=== PATIENT | male | born 1960 | race Caucasian/White ===

== ENCOUNTER 2017-05-24 16:35 | Emergency (ER) | payer BC ==
[2017-05-24 16:45] VITALS: BP 150/87
--- NOTE | 2017-05-24 17:25 | UC ---
Skin Complaint HPI - HPI Summary HPI Summary: 56 yo male with pain /swelling occiput has sebaceous cyst there got infected and resolved with keflex last yr no f/c no n/v - History of Current Complaint Chief Complaint: UCSkin Time Seen by Provider: 05/24/17 17:10 Stated Complaint: SKIN COMPLAINT Hx Obtained From: Patient Onset/Duration: Gradual Onset, Lasting Days Timing: Constant Onset Severity: Mild Current Severity: Moderate Pain Intensity: 4 Pain Scale Used: 0-10 Numeric Character: Swelling, Redness, Raised, Painful Aggravating Factor(s): Touch Alleviating Factor(s): Heat Associated Signs & Symptoms: Positive: Tenderness - Allergy/Home Medications Allergies/Adverse Reactions: Allergies Allergy/AdvReac Type Severity Reaction Status Date / Time Statins Allergy Severe muscle pain Verified 05/24/17 16:45 Review of Systems Constitutional: Negative Skin: Negative Eyes: Negative ENT: Negative Respiratory: Negative Cardiovascular: Negative Gastrointestinal: Negative Genitourinary: Negative Motor: Negative Neurovascular: Negative Musculoskeletal: Negative Neurological: Negative Psychological: Negative Is Patient Immunocompromised?: No All Other Systems Reviewed And Are Negative: Yes PMH/Surg Hx/FS Hx/Imm Hx Previously Healthy: Yes Endocrine History: Diabetes Cardiovascular History: Hypertension - Surgical History Surgical History: Yes Surgery Procedure, Year, and Place: Appendectomy, Left carpal tunnel surgery, angioplasty 2002 with no stenting - Family History Known Family History: Positive: Cardiac Disease, Hypertension, Diabetes - Social History Alcohol Use: None Substance Use Type: None Smoking Status (MU): Never Smoked Tobacco Have You Smoked in the Last Year: No Physical Exam Triage Information Reviewed: Yes Appearance: Well-Appearing, No Pain Distress, Well-Nourished Vital Signs: Initial Vital Signs Temp 97.7 F 05/24/17 16:40 Pulse 74 05/24/17 16:40 Resp 20 05/24/17 16:40 BP 150/87 05/24/17 16:40 Pulse Ox 98 05/24/17 16:40 Vital Signs Reviewed: Yes Eyes: Positive: Conjunctiva Clear ENT: Positive: Hearing grossly normal. Negative: Nasal congestion, Nasal drainage, Muffled voice, Hoarse voice Neck: Positive: Supple, Nontender Respiratory: Positive: Lungs clear, Normal breath sounds, No respiratory distress Cardiovascular: Positive: RRR, No Murmur, Pulses Normal Musculoskeletal: Positive: ROM Intact, No Edema Neurological: Positive: Alert Psychological Exam: Normal Skin Exam: Other - see image Course/Dx - Diagnoses Provider Diagnoses: cellulitis occiput. sebaceous cyst Discharge - Discharge Plan Condition: Stable Disposition: HOME Prescriptions: Cephalexin CAP* [Keflex CAP*] 500 mg PO QID #28 cap Patient Education Materials: Cellulitis (ED) Referrals: Cindy Chauhan MD [Primary Care Provider] - 4 Days Additional Instructions: suspect sebaceous cyst recheck for new or worsening symptoms Images Head: 1 - sebaceous cyst with overlying erthyema
== END 2017-05-24 17:30 | disposition home or self-care (01) ==
LOC: UCEAST 16:35
DX: L03.811 Cellulitis of head [any part, except face] (principal); L72.3 Sebaceous cyst; E11.9 Type 2 diabetes mellitus without complications; I10 Essential (primary) hypertension; Z88.8 Allergy status to other drugs, medicaments and biological substances
CPT/HCPCS: 99212; G0463

== ENCOUNTER 2017-07-01 11:47 | Emergency (ER) | payer BC ==
[2017-07-01 13:19] VITALS: BP 140/83
--- NOTE | 2017-07-01 13:31 | UC ---
Throat Pain/Nasal [place] HPI - HPI Summary HPI Summary: top frontal headache thick yellow nasal drainage with vertigo feeling whne he get stuffed up for 2 weeks has been treating with flonase and otc medications - History of Current Complaint Chief Complaint: UCGeneralIllness Stated Complaint: sinus complaint Time Seen by Provider: 07/01/17 13:21 Hx Obtained From: Patient Onset/Duration: Gradual Onset, Lasting Weeks - 2, Still Present Severity: Moderate Pain Intensity: 6 Pain Scale Used: 0-10 Numeric Cough: None Associated Signs & Symptoms: Positive: Sinus Discomfort, Nasal Discharge, Other - left ear congestion - Allergies/Home Medications Allergies/Adverse Reactions: Allergies Allergy/AdvReac Type Severity Reaction Status Date / Time Statins Allergy Severe muscle pain Verified 07/01/17 13:08 PMH/Surg Hx/FS Hx/Imm Hx Previously Healthy: No Endocrine History: Diabetes Cardiovascular History: Hypertension - Surgical History Surgical History: Yes Surgery Procedure, Year, and Place: Appendectomy, Left carpal tunnel surgery, angioplasty 2002 with no stenting - Family History Known Family History: Positive: Cardiac Disease, Hypertension, Diabetes - Social History Occupation: Employed Full-time Lives: With Family Alcohol Use: Rare Substance Use Type: None Smoking Status (MU): Never Smoked Tobacco Have You Smoked in the Last Year: No - Immunization History Most Recent Influenza Vaccination: no Review of Systems Constitutional: Chills, Fatigue Skin: Negative Eyes: Negative ENT: Ear Ache, Nasal Discharge, Sinus Congestion, Sinus Pain/Tenderness Respiratory: Negative Cardiovascular: Negative Gastrointestinal: Negative Genitourinary: Negative Motor: Negative Neurovascular: Negative Musculoskeletal: Negative Neurological: Headache Psychological: Negative Is Patient Immunocompromised?: No All Other Systems Reviewed And Are Negative: Yes Physical Exam Triage Information Reviewed: Yes Appearance: Well-Appearing, No Pain Distress, Well-Nourished Vital Signs: Initial Vital Signs Temp 98.9 F 07/01/17 13:09 Pulse 69 07/01/17 13:09 Resp 16 07/01/17 13:09 BP 140/83 07/01/17 13:09 Pulse Ox 98 07/01/17 13:09 Vital Signs Reviewed: Yes Eye Exam: Normal Eyes: Positive: Conjunctiva Clear ENT Exam: Normal ENT: Positive: Normal ENT inspection, Hearing grossly normal, Pharynx normal, Nasal congestion, TMs normal - right, TM bulging - left, Sinus tenderness, Uvula midline. Negative: Nasal drainage, Tonsillar swelling, Tonsillar exudate , Trismus, Muffled voice, Hoarse voice, Dental tenderness Dental Exam: Normal Neck exam: Normal Neck: Positive: Supple, Nontender, No Lymphadenopathy Respiratory Exam: Normal Respiratory: Positive: Chest non-tender, Lungs clear, Normal breath sounds, No respiratory distress, No accessory muscle use Cardiovascular Exam: Normal Cardiovascular: Positive: RRR, No Murmur, Pulses Normal, Brisk Capillary Refill Musculoskeletal Exam: Normal Musculoskeletal: Positive: Strength Intact, ROM Intact, No Edema Neurological Exam: Normal Neurological: Positive: Alert, Muscle Tone Normal Psychological Exam: Normal Skin Exam: Normal Throat Pain/Nasal Course/Dx - Course Assessment/Plan: continue treatment with otc meds for sx releef, Add Augmentin follow with pcp this week - Differential Dx/Diagnosis Provider Diagnoses: Acute Rhinosinusitis, Hypertension in poor control Discharge - Discharge Plan Condition: Stable Disposition: HOME Prescriptions: Amoxicillin/Clavulanate TAB* [Augmentin TAB 875*] 875 mg PO BID #20 tab Patient Education Materials: Vertigo (ED), Rhinosinusitis (ED), Hypertension ( ED) Referrals: Cindy Chauhan MD [Primary Care Provider] - 2 Weeks
== END 2017-07-01 13:37 | disposition home or self-care (01) ==
LOC: UCCORT 11:47
DX: J01.90 Acute sinusitis, unspecified (principal); I10 Essential (primary) hypertension; E11.9 Type 2 diabetes mellitus without complications; Z88.8 Allergy status to other drugs, medicaments and biological substances
CPT/HCPCS: 99212; G0463

== ENCOUNTER 2018-06-24 05:45 | Emergency (ER) | payer OTHER ==
[2018-06-24] MEDS ORDERED: NS 0.9% 1000 ML* 1,000 ML IV ONE (06:38)
--- NOTE | 2018-06-24 06:50 | ED ---
Headache - HPI Summary HPI Summary: Pt. is a 57 y.o male who presents to the ER for headache that started yesterday evening. Past medical hx of HTN, elevated glucose, rheumatoid arthritis, depression. Pt. denies hx of migraines or headaches. He noted mild sinus congestion and cough x 2 days. Denies N/V/D, abd. pain, urinary sxs, fever, recent injury or falls. Pt. states pain started last night while he was at work. He works at [employer]. Pt. states that pain was gradual onset. He states pain is worse than any h/a he has had before. He states pain is located to the right parietal region and pain waxes and wanes and is very sharp in nature. Pt. notes that he is currently working with his PCP for his elevated BP and they have been having trouble controlling BP. He is currently on lisinopril and just started amlodipine. Denies burning, pain, or rash to skin. Denies visual changes, numbness, tingling or weakness. Sxs are moderate in severity. No current modifying factors. - History Of Current Complaint Chief Complaint: EDGeneral Stated Complaint: HEAD PAIN, HIGH BP Time Seen by Provider: 06/24/18 06:18 Hx Obtained From: Patient - Allergies/Home Medications Allergies/Adverse Reactions: Allergies Allergy/AdvReac Type Severity Reaction Status Date / Time [id number] Reductase Allergy Muscle Ache Verified 06/24/18 09:27 Inhibitor PMH/Surg Hx/FS Hx/Imm Hx Previously Healthy: Yes Endocrine/Hematology History: Reports: Hx Diabetes Denies: Hx Thyroid Disease Cardiovascular History: Reports: Hx Angina, Hx Hypertension Denies: Hx Pacemaker/ICD Respiratory History: Reports: Hx Sleep Apnea - current CPAP user Denies: Hx Asthma, Hx Chronic Obstructive Pulmonary Disease (COPD) GI History: Denies: Hx Ulcer History: Denies: Hx Renal Disease Sensory History: Reports: Hx Contacts or Glasses Denies: Hx Hearing Aid Opthamlomology History: Reports: Hx Contacts or Glasses Neurological History: 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 Psychiatric History: Denies: Hx Panic Disorder - Surgical History Surgery Procedure, Year, and Place: Appendectomy, Left carpal tunnel surgery, angioplasty 2002 with no stenting - Immunization History Date of Tetanus Vaccine: remote Date of Influenza Vaccine: 2016 Infectious Disease History: No Infectious Disease History: Denies: Hx Clostridium Difficile, Hx Hepatitis, Hx Human Immunodeficiency Virus (HIV), Hx of Known/Suspected MRSA, Hx Shingles, Hx Tuberculosis, Hx Known/ Suspected VRE, Hx Known/Suspected VRSA, History Other Infectious Disease, Traveled Outside the [place] in Last 30 Days - Family History Known Family History: Positive: Cardiac Disease, Hypertension, Diabetes - Social History Occupation: Employed Full-time Lives: With Family Alcohol Use: Rare Substance Use Type: Reports: None Smoking Status (MU): Never Smoked Tobacco Have You Smoked in the Last Year: No Review of Systems Constitutional: Negative Negative: Fever, Chills Eyes: Negative Negative: Photophobia, Blurred Vision, Diplopia Positive: Nasal Discharge Cardiovascular: Negative Positive: Cough - mild cough Gastrointestinal: Negative Negative: Abdominal Pain, Vomiting, Diarrhea, Nausea Genitourinary: Negative Musculoskeletal: Negative Skin: Negative Positive: Headache. Negative: Weakness, Paresthesia, Numbness All Other Systems Reviewed And Are Negative: Yes Physical Exam Triage Information Reviewed: Yes Vital Signs On Initial Exam: Initial Vitals Temp Pulse Resp BP Pulse Ox 96.9 F 86 20 172/111 97 06/24/18 05:48 06/24/18 05:48 06/24/18 05:48 06/24/18 05:48 06/24/18 05:48 Appearance: Positive: Well-Appearing - Pt. sitting up in bed in NAD. Pleasant. Skin: Positive: Warm, Dry Head/Face: Positive: Normal Head/Face Inspection, Other - No pain or swelling over the right temporal region. No rash to sclalp. Eyes: Positive: Normal, EOMI, CRISTINA, Conjunctiva Clear ENT: Positive: Pharynx normal, TMs normal Neck: Positive: Supple, Nontender, No Lymphadenopathy. Negative: Nuchal Rigidity Respiratory/Lung Sounds: Positive: Clear to Auscultation, Breath Sounds Present Cardiovascular: Positive: Normal, RRR Musculoskeletal: Positive: Normal, Strength/ROM Intact Neurological: Positive: Normal, Alert, Oriented to Person Place, Time, CN Intact II-III Psychiatric: Positive: Affect/Mood Appropriate - Woo Coma Scale Best Eye Response: 4 - Spontaneous Best Motor Response: 6 - Obeys Commands Best Verbal Response: 5 - Oriented Coma Scale Total: 15 Diagnostics - Vital Signs Vital Signs Temp Pulse Resp BP Pulse Ox 06/24/18 05:48 96.9 F 86 20 172/111 97 - Laboratory Result Diagrams: 06/24/18 06:53 06/24/18 06:53 Lab Statement: Any lab studies that have been ordered have been reviewed, and results considered in the medical decision making process. Headache Course/Dx - Course Course Of Treatment: Pt. presenting for localized mild to severe headache. BP initially a bit elevated but has improved. Given new h/a will obtain head ct to r/o mass, bleed, ect. Basic labs ordered and pt. started on fluids. Overall he is well appearing without neuro deficits. Labs are unremarkable. CT scan negatiev for acute findings, per radiology. Pt. given toradol with mild improvement. He did drive to ed so medication limited. Case discussed with Dr. Richard who does not recommend any further testing today. WIll dc home to [facility] with PCP. Pt. understands and agrees with plan. - Diagnoses Differential Diagnosis/HQI/PQRI: CVA, TIA, Epidural Hematoma, Meningitis, Migraine, Sinus Headache, Subarachnoid Hemorrhage, Temporal Arteritis, Tension Headache, Viral Syndrome Provider Diagnoses: Cephalgia Discharge - Sign-Out/Discharge Documenting (check all that apply): Patient Departure - Discharge Plan Condition: Improved Disposition: HOME Patient Education Materials: Acute Headache (ED), Hypertension (ED) Referrals: Cindy Chauhan MD [Primary Care Provider] - Additional Instructions: Schedule a close follow up appointment with your PCP Continue home medications as directed Tylenol or Motrin for pain as directed Return to ER if symptoms change or worsen - Billing Disposition and Condition Condition: IMPROVED Disposition: Home
[2018-06-24 07:06] LABS: ABS Basophils 0.1 10^3/ul (0-0.2); ABS Eosinophils 0.4 10^3/ul (0-0.6); ABS Lymphocytes 1.6 10^3/ul (1.0-4.8); ABS Monocytes 0.5 10^3/ul (0-0.8); ABS Neutrophils 6.6 10^3/ul (1.5-7.7); ABS Nucleated RBC 0 10^3/ul; Hematocrit 46 % (42-52); Hemoglobin 16.3 g/dl (14.0-18.0); Lymphocyte % 17.6 %; Mean Corpuscular HGB Conc 36 g/dl (31-36); Mean Corpuscular Hemoglobin 31 pg (27-31); Mean Corpuscular Volume 88 fL (80-94); Mean Platelet Volume 6.9 fL (7.4-10.4); Nucleated Red Blood Cells % 0.1; Platelet Count 253 10^3/ul (150-450); Red Blood Count 5.22 10^6/ul (4.00-5.40); Red Cell Distribution Width 13 % (10.5-15); White Blood Count 9.2 10^3/ul (3.5-10.8)
[2018-06-24 07:21] LABS: EGFR Non-African American 94.8 (>60)
[2018-06-24] MEDS ORDERED: Ketorolac INJ* 30 MG/ML 1 ML VIAL IV PUSH ONE (07:54)
[2018-06-24 09:27] VITALS: BP 139/90
== END 2018-06-24 09:28 | disposition home or self-care (01) ==
LOC: ED 05:45
DX: M54.2 Cervicalgia (principal); R05 Cough; R51 Headache
CPT/HCPCS: 36415; 70450; 80053; 85025; 85652; 96374; 99283; J1885